=== PATIENT | male | born 1965 | race Caucasian/White ===

== ENCOUNTER 2018-09-07 14:46 | Emergency (ER) | payer OTHER, MEDICARE ==
[~2018-09-07 14:46] MED LIST: ASPIRIN PO; BACLOFEN PO; CEPH-578 PO; MULTIVITAMINS; TRAM50TA4 PO
[2018-09-07] MEDS ORDERED: ACETAMINOPHEN-CODEINE 300/30MG TAB ONE (15:30)
[2018-09-07] MEDS ORDERED: KETOROLAC TROMETHAMINE 30MG/ML ONE (15:31)
== END 2018-09-07 16:11 | disposition home or self-care (01) ==
LOC: EDH 14:46
DX: S22.42XA Multiple fractures of ribs, left side, initial encounter for closed fracture (principal); E78.5 Hyperlipidemia, unspecified; I10 Essential (primary) hypertension; F41.9 Anxiety disorder, unspecified; F32.9 Major depressive disorder, single episode, unspecified; Z88.1 Allergy status to other antibiotic agents; Z72.0 Tobacco use; W18.39XA Other fall on same level, initial encounter; Y93.01 Activity, walking, marching and hiking; Y92.89 Other specified places as the place of occurrence of the external cause; Y99.8 Other external cause status
CPT/HCPCS: 71100; 96372; 99284; J1885

== ENCOUNTER 2021-06-21 17:27 | Emergency (ER) | payer OTHER, MEDICARE ==
[~2021-06-21] VITALS: Ht 175.3 cm; Wt 66.7 kg
[2021-06-21 17:31] VITALS: BP 112/66
[2021-06-22 00:02] LABS: BASOPHILS % (AUTO) 0.7 % (0.0-5.0); EOSINOPHILS % (AUTO) 1.9 % (0.0-8.0); HEMATOCRIT 42.9 % (42-54); LYMPHOCYTES % (AUTO) 38.7 % (21.0-51.0); MEAN CORPUSCULAR HEMOGLOBIN 31.3 pg (27.0-33.0); MEAN CORPUSCULAR HGB CONC 33.6 g/dL (32.0-36.0); MEAN CORPUSCULAR VOLUME 93.3 fL (79-99); MONOCYTES % (AUTO) 11.5 % (3.0-13.0); NEUTROPHILS % (AUTO) 46.5 % (40.0-77.0); PLATELET COUNT (AUTO) 215 K/uL (130-400); RED CELL DISTRIBUTION WIDTH 13.2 % (11.0-15.5); WHITE BLOOD COUNT (AUTO) 5.9 K/uL (4.8-10.8)
[2021-06-22 00:14] LABS: CREATININE 0.7 mg/dL (0.5-1.5); POTASSIUM 3.5 mmol/L (3.5-5.1)
[2021-06-22 00:18] LABS: ALBUMIN 3.7 g/dL (3.5-5.0); BILIRUBIN,TOTAL 0.2 mg/dL (0.2-1.0); TOTAL PROTEIN, SERUM 7.3 g/dL (6.0-8.3)
[2021-06-22] MEDS ORDERED: MEROPENEM 1 GM VIAL IVP STA (01:13)
[2021-06-22 01:19] LABS: BILIRUBIN,URINE Negative (NEGATIVE); COLOR,URINE Yellow (YELLOW); GLUCOSE, URINE (UA) Negative (NEGATIVE); KETONES,URINE Negative (NEGATIVE); LEUKOCYTE ESTERASE ,URINE Large (NEGATIVE); NITRATE,URINE Positive (NEGATIVE); OCCULT BLOOD,URINE Large (NEGATIVE); PROTEIN,URINE Trace mg/dL (NEGATIVE); UROBILINOGEN,URINE 0.2 mg/dL (0.2-1.0)
[2021-06-22 01:28] LABS: APPEARANCE,URINE HAZY (CLEAR)
[2021-06-22] MEDS ORDERED: LACTATED RINGERS 1000ML 1,000 ML IV ONE ×2 (01:30)
[2021-06-22 01:38] LABS: BACTERIA,URINE Few /HPF (None Seen); SQUAMOUS EPITHELIAL CELL,UR 0-2 /HPF (0-2)
[2021-06-22 02:01] LABS: CRP QUANTITATIVE 2.1 mg/L (0.00-9.0)
[2021-06-22 02:51] VITALS: BP 120/65
== END 2021-06-22 02:53 | disposition home or self-care (01) ==
LOC: EDH 17:27
DX: N39.0 Urinary tract infection, site not specified (principal); G81.94 Hemiplegia, unspecified affecting left nondominant side; J44.9 Chronic obstructive pulmonary disease, unspecified; E78.00 Pure hypercholesterolemia, unspecified; F17.200 Nicotine dependence, unspecified, uncomplicated; E86.0 Dehydration; Z79.82 Long term (current) use of aspirin; Z79.899 Other long term (current) drug therapy; Z88.1 Allergy status to other antibiotic agents
CPT/HCPCS: 36415 ×2; 80053; 81001; 82150; 83690; 83735; 85025; 86140; 87040 ×2; 87077; 87088; 87186; 93005; 96361; 96374; 99284; J2185; J7120

== ENCOUNTER 2023-12-03 09:34 | Emergency (ER) | payer OTHER, MEDICARE ==
[~2023-12-03] VITALS: Ht 170.2 cm; Wt 68.0 kg
[2023-12-03 10:21] LABS: BASOPHILS # (AUTO) 0.07 K/uL (0.00-0.20); BASOPHILS % (AUTO) 1.1 % (0.0-5.0); EOSINOPHILS % (AUTO) 1.6 % (0.0-8.0); HEMATOCRIT 47.4 % (42-54); IMMATURE GRANULOCYTE ABSOLUTE 0.03 K/uL (0-1); LYMPHOCYTES # (AUTO) 1.8 K/uL (1.0-4.8); LYMPHOCYTES % (AUTO) 27.6 % (21.0-51.0); MEAN CORPUSCULAR HEMOGLOBIN 31.8 pg (27.0-33.0); MEAN CORPUSCULAR HGB CONC 34.6 g/dL (32.0-36.0); MEAN CORPUSCULAR VOLUME 91.9 fL (79-99); MONOCYTES # (AUTO) 0.5 K/uL (0.1-1.0); MONOCYTES % (AUTO) 8.1 % (3.0-13.0); NEUTROPHILS # (AUTO) 3.9 K/uL (1.8-7.7); NEUTROPHILS % (AUTO) 61.1 % (40.0-77.0); PLATELET COUNT (AUTO) 227 K/uL (130-400); RED BLOOD CELL COUNT(AUTO) 5.16 MIL/uL (4.50-6.20); WHITE BLOOD COUNT (AUTO) 6.4 K/uL (4.8-10.8)
[2023-12-03 10:30] LABS: CREATININE 0.6 mg/dL (0.5-1.5); POTASSIUM 3.9 mmol/L (3.5-5.1)
[2023-12-03 10:35] LABS: ALBUMIN 3.8 g/dL (3.5-5.0); TOTAL PROTEIN, SERUM 7.4 g/dL (6.0-8.3)
[2023-12-03 10:39] LABS: ADD UA MICROSCOPIC YES; APPEARANCE,URINE TURBID (CLEAR); BILIRUBIN,URINE NEGATIVE (NEGATIVE); COLOR,URINE YELLOW (YELLOW); GLUCOSE, URINE (UA) NEGATIVE (NEGATIVE); KETONES,URINE 5 mg/dL (NEGATIVE); LEUKOCYTE ESTERASE ,URINE 500 Leu/uL (NEGATIVE); NITRATE,URINE 2+ (NEGATIVE); OCCULT BLOOD,URINE NEGATIVE (NEGATIVE); PH,URINE 8.5 (5.0-8.0); PROTEIN,URINE 100 mg/dL (NEGATIVE); UROBILINOGEN,URINE 0.2 mg/dL (0.2-1.0)
[2023-12-03 10:44] LABS: RBC,URINE 0-1 /HPF (0-1); WBC,URINE 0-1 /HPF (0-1)
[2023-12-03 11:01] VITALS: BP 153/80; PULSE 84; RESP 14; O2SAT 98
[2023-12-03] MEDS ORDERED: CEPH500T PO (11:26)
[2023-12-03] MEDS ORDERED: KETOROLAC 15MG/ML VIAL (15MG/ML) IM ONE (11:30)
[2023-12-03] MEDS ORDERED: CEPHALEXIN 500 MG CAPSULE PO ONE (11:30)
== END 2023-12-03 12:05 | disposition home or self-care (01) ==
LOC: EDH 09:34
DX: N39.0 Urinary tract infection, site not specified (principal); N48.89 Other specified disorders of penis; E78.00 Pure hypercholesterolemia, unspecified; J45.909 Unspecified asthma, uncomplicated; F17.200 Nicotine dependence, unspecified, uncomplicated; Z79.899 Other long term (current) drug therapy; Z98.890 Other specified postprocedural states; Z88.8 Allergy status to other drugs, medicaments and biological substances
CPT/HCPCS: 99283; 80053; 85025; 87077; 87088; 87186; 81001; 36415; 96372; J1885

== ENCOUNTER 2024-03-15 18:25 | Observation (INO) | payer OTHER, MEDICARE ==
[~2024-03-15] VITALS: Ht 170.2 cm; Wt 62.9 kg
[~2024-03-15 18:25] MED LIST changes: +CEPH500T PO
[2024-03-15 22:13] LABS: BASOPHILS # (AUTO) 0.09 K/uL (0.00-0.20); BASOPHILS % (AUTO) 1.1 % (0.0-5.0); EOSINOPHILS # (AUTO) 0.13 K/uL (0.00-0.70); EOSINOPHILS % (AUTO) 1.6 % (0.0-8.0); HEMATOCRIT 43.6 % (42-54); IMMATURE GRANULOCYTE ABSOLUTE 0.05 K/uL (0-1); LYMPHOCYTES # (AUTO) 2.5 K/uL (1.0-4.8); LYMPHOCYTES % (AUTO) 30.6 % (21.0-51.0); MEAN CORPUSCULAR HEMOGLOBIN 31.6 pg (27.0-33.0); MEAN CORPUSCULAR HGB CONC 34.2 g/dL (32.0-36.0); MEAN CORPUSCULAR VOLUME 92.6 fL (79-99); MONOCYTES # (AUTO) 0.7 K/uL (0.1-1.0); MONOCYTES % (AUTO) 8.5 % (3.0-13.0); NEUTROPHILS # (AUTO) 4.6 K/uL (1.8-7.7); NEUTROPHILS % (AUTO) 57.6 % (40.0-77.0); PLATELET COUNT (AUTO) 273 K/uL (130-400); RED BLOOD CELL COUNT(AUTO) 4.71 MIL/uL (4.50-6.20); RED CELL DISTRIBUTION WIDTH 12.5 % (11.0-15.5)
[2024-03-15 22:24] LABS: INR <= 0.93 (0.85-1.15); PROTHROMBIN TIME 10.7 SEC (9.6-11.6)
[2024-03-15 22:25] LABS: PARTIAL THROMBOPLASTIN TIME 27.5 SEC (26.3-35.5)
[2024-03-15 22:26] LABS: CREATININE 0.7 mg/dL (0.5-1.3); POTASSIUM 3.3 mmol/L (3.5-5.1)
[2024-03-15] MEDS ORDERED: DOCUSATE SODIUM 100 MG CAP PO PRN (23:00)
[2024-03-15] MEDS ORDERED: GUAIFENESIN SUGAR-FREE 100 MG/5 ML UDCUP PO PRN (23:00)
[2024-03-15] MEDS ORDERED: DIPHENHYDRAMINE HCL 25 MG CAPSULE PO PRN (23:00)
[2024-03-15] MEDS ORDERED: POTASSIUM CHLORIDE 20MEQ/100ML 100 ML IV PRN (23:00)
[2024-03-15] MEDS ORDERED: NITROGLYCERIN 0.4 MG SL TAB SL PRN (23:00)
[2024-03-15] MEDS ORDERED: LACTULOSE 20 GM/30 ML UDCUP PO PRN (23:00)
[2024-03-15] MEDS ORDERED: POLYETHYLENE GLYCOL 3350 17 GM POWD.PACK PO PRN (23:00)
[2024-03-15] MEDS ORDERED: ARTIFICAL TEARS SOL 15 ML OP PRN (23:00)
[2024-03-15] MEDS ORDERED: ACETAMINOPHEN 325 MG TAB PO PRN (23:00)
[2024-03-15] MEDS ORDERED: HYDRALAZINE 25MG TABLET PO PRN (23:00)
[2024-03-15] MEDS ORDERED: MAGNESIUM 2GM PREMIX 50ML 50 ML IV PRN (23:00)
[2024-03-15] MEDS ORDERED: ONDANSETRON 4MG INJ IV PRN (23:00)
[2024-03-15] MEDS ORDERED: POTASSIUM CHLORIDE 10% ELIXIR 20 MEQ/15 ML UDCUP PO PRN (23:00)
[2024-03-16] VITALS (14 sets, daily range): BP systolic 111–143; BP diastolic 68–89; PULSE 53–89; RESP 18–20; O2SAT 96–97
[2024-03-16] MEDS: ALBUTEROL 0.083% 2.5 MG/3 ML INH IH PRN (00:36)
[2024-03-16 04:17] LABS: HEMATOCRIT 42.1 % (42-54); MEAN CORPUSCULAR HEMOGLOBIN 31.8 pg (27.0-33.0); MEAN CORPUSCULAR HGB CONC 34.4 g/dL (32.0-36.0); MEAN CORPUSCULAR VOLUME 92.3 fL (79-99); RED BLOOD CELL COUNT(AUTO) 4.56 MIL/uL (4.50-6.20); RED CELL DISTRIBUTION WIDTH 12.3 % (11.0-15.5); WHITE BLOOD COUNT (AUTO) 10.1 K/uL (4.8-10.8)
[2024-03-16 04:40] LABS: ALBUMIN 3.4 g/dL (3.5-5.0); BILIRUBIN,TOTAL 0.3 mg/dL (0.2-1.0); CREATININE 0.6 mg/dL (0.5-1.3); POTASSIUM 3.4 mmol/L (3.5-5.1); TOTAL PROTEIN, SERUM 6.8 g/dL (6.0-8.3)
[2024-03-16] MEDS ORDERED: ATOR10TA69 PO (06:47)
[2024-03-16] MEDS ORDERED: OXYB10TA30 PO (06:47)
[2024-03-16] MEDS: INSULIN HUMULIN R 100 UNIT/ML 3ML SQ SCH (07:30)
[2024-03-16] MEDS: FAMOTIDINE 20MG TAB PO SCH (08:29)
[2024-03-16] MEDS: TAMSULOSIN HCL 0.4 MG CAP.ER.24H PO SCH (08:29)
[2024-03-16] MEDS: OXYBUTYNIN 5 MG TAB.SR.24H PO SCH (08:30)
[2024-03-16] MEDS: ATORVASTATIN 10 MG TABLET PO SCH (08:30)
[2024-03-16] MEDS: KCL 20 MEQ ERTAB PO PRN (08:30)
[2024-03-16 16:21] LABS: BILIRUBIN,URINE NEGATIVE (NEGATIVE); COLOR,URINE YELLOW (YELLOW); GLUCOSE, URINE (UA) NEGATIVE (NEGATIVE); KETONES,URINE NEGATIVE (NEGATIVE); LEUKOCYTE ESTERASE ,URINE 500 Leu/uL (NEGATIVE); NITRATE,URINE 2+ (NEGATIVE); OCCULT BLOOD,URINE NEGATIVE (NEGATIVE); PROTEIN,URINE NEGATIVE (NEGATIVE); UROBILINOGEN,URINE 0.2 mg/dL (0.2-1.0)
[2024-03-16 16:23] LABS: ADD UA MICROSCOPIC YES; APPEARANCE,URINE HAZY (CLEAR)
[2024-03-16 16:28] LABS: BACTERIA,URINE MOD /HPF (None Seen); MUCUS,URINE RARE LPF (None Seen); SQUAMOUS EPITHELIAL CELL,UR RARE /HPF (0-2); WBC CLUMP RARE /HPF (0-1); WBC,URINE TNTC /HPF (0-1)
[2024-03-16] MEDS: CEFTRIAXONE 2GM VIAL IVPB SCH (16:33)
[2024-03-17] VITALS (13 sets, daily range): BP systolic 117–155; BP diastolic 73–93; PULSE 60–83; RESP 18–20; O2SAT 95–98
[2024-03-17] MEDS ORDERED: ARTIFICAL TEARS SOL 15 ML OP PRN (11:30)
[2024-03-17] MEDS: ACETAMINOPHEN 325 MG TAB PO PRN (20:20)
[2024-03-18 04:00] VITALS: BP 103/62; PULSE 55; RESP 18
[2024-03-18 07:03] VITALS: PULSE 60; RESP 18
[2024-03-18 07:05] VITALS: PULSE 72; RESP 18; O2SAT 97
[2024-03-18 07:59] VITALS: BP 137/68; PULSE 57; RESP 18
[2024-03-18] MEDS: DOXYCYCLINE HYCLATE 100 MG TABLET PO SCH (08:27)
[2024-03-18 09:45] VITALS: O2SAT 96
[2024-03-18] MEDS ORDERED: SULF1TAB42 PO (09:58)
[2024-03-18] MEDS ORDERED: DOXY100C61 PO (09:58)
== END 2024-03-18 11:45 | disposition home or self-care (01) ==
LOC: EDH 18:25 → EDHIP 18:26 → UNDOADMOB 22:45 → EDHIP 03-16 00:01 → 3AH 03-16 00:01
PROVIDERS: ADMIT Internal Medicine; ATTEND Internal Medicine
DX: T83.090A Other mechanical complication of cystostomy catheter, initial encounter (principal); J44.9 Chronic obstructive pulmonary disease, unspecified; E78.00 Pure hypercholesterolemia, unspecified; N30.00 Acute cystitis without hematuria; F17.200 Nicotine dependence, unspecified, uncomplicated; Y73.8 Miscellaneous gastroenterology and urology devices associated with adverse incidents, not elsewhere classified; Z88.1 Allergy status to other antibiotic agents; Z79.899 Other long term (current) drug therapy
CPT/HCPCS: 99284; 80048; 85025; 85610; 85730; 36415 ×2; 74176; 96365; 83735; 80053; 85027; 87071; 87077 ×2; 87088; 87186 ×2; 87205; 82948; 81001; 94640; 94664; 96366; 71045; G0378 ×61; J0696 ×2